=== PATIENT | male | born 1965 | race Caucasian/White ===

== ENCOUNTER → 2016-11-14 | Outpatient (CLI) | payer BC ==
[2016-03-13 11:07] VITALS: BP 184/92
[~2016-11-14] MED LIST: NS 100 ML IV 100 ML IV ONE
[2016-11-14 08:42] LABS: CREATININE 1.18 mg/dL (0.70-1.30)
--- NOTE | 2016-11-14 10:06 | CT ---
CT angiogram chest with contrast Indication: Dyspnea and cough. Past history of PE. Comparison: July 14, 2013 CT. Technique: Helical images through the chest after IV contrast per protocol. Coronal and sagittal refo rmats provided. MIP images performed. Findings: Limited images through the upper abdomen shows no acute abnormality. Review of bone windows shows spine degenerative change. Chest: Aortic arch and branch vessels patent. Pulmonary artery bolus timing is adequate, without larg e central or segmental pulmonary thromboembolic filling defect identified. There is no pneumothorax, effusion or consolidation. No mediastinal abnormality seen. Heart size is normal. Mild peribronchial thickening with patchy tree-in-bud opacities in the right lower lung noted. Impression: 1. Early right lower lobe pneumonia possible. 2. No pulmonary thromboembolus. 3. No other acute abnormality. Reported By:
== END ==
LOC: RAD 08:15
PROVIDERS: ATTEND Internal Medicine
DX: R06.02 Shortness of breath (principal); R05 Cough; I26.99 Other pulmonary embolism without acute cor pulmonale
CPT/HCPCS: 36415; 71275; 82565; 84520; A4222

== ENCOUNTER 2019-11-29 09:57 | Observation (INO) ==
[2019-11-29] MEDS ORDERED: NS 500 ML IV 1,000 ML IV ONE (10:38)
[2019-11-29] MEDS ORDERED: NORMODYNE INJ 100 MG VIAL IVP ONE (10:40)
[2019-11-29] MEDS ORDERED: ZOFRAN INJ 4 MG VIAL IVP ONE ×2 (10:40→11:33)
[2019-11-29] MEDS ORDERED: ZOFRAN INJ 4 MG VIAL ONE ×2 (10:50→19:15)
[2019-11-29] MEDS ORDERED: NORMODYNE INJ 100 MG VIAL ONE (10:51)
[2019-11-29] MEDS ORDERED: NS 1000 ML 1,000 ML ONE (10:51)
[2019-11-29] MEDS ORDERED: VERSED ONE (10:55)
[2019-11-29] MEDS ORDERED: DIPRIVAN VIAL ONE (10:55)
--- NOTE | 2019-11-29 10:59 | DR.GENAD ---
HPI Time Seen Time Seen by Provider: 11/29/19 10:01 PCP Primary Care Physician: DR BENEDICT VILLALOBOS Complaint/Symptoms Chief Complaint Doctors Comments: MRI done 11/26/2019 showed no CVA or optic nerve disorder. Chief Complaint:: SINCE FRIDAY PT HAS HAD CONSTANT SEVERE PAIN INTO RIGHT SIDE OF HEAD AND VISION LOSS INTO RIGHT EYE. PT ALSO C/O NAUSEA. Self Treatment fo Chief Complaint: TOOK HYDROCODONE AND PHENERGAN WITH NO RELIEF COVID-19 Coronavirus risk:travel/contact w/high risk person: No Has patient experienced Coronavirus symptoms: No Nurses notes reviewed Nurses Notes Review: Yes Source History Provided: Patient Mode of Arrival Mode of Arrival: Ambulatory Timing Onset of Chief Complaint: 11/24/19 Came on: Gradually Duration Duration: Constant How lon Duration: Days Location Location: right periorbital area Severity Severity: Moderate Modifying Factors Worsens:: movement and vision Associated Signs and Symptoms Associated Signs and Symptoms: dizziness vomiting PMH PMH Past Medical History: Yes Past Medical History: Coronary Artery Disease, Diabetes, Dyslipidemia and Hypertension Past Medical History Comment: DVT. AFIB, MULTIPLE PE, FACTOR 5 LIEDEN Past Surgical History: Yes Surgical History: Angioplasty/Stents, Cholecystectomy and Tonsillectomy Family History History of Family Medical Conditions: Yes Family Medical History: Diabetes Mellitus, Cancer, [place], Coronary Artery Disease and Hypertension Family Medical History Comment: CVA Social History Does patient currently use any type of tobacco product: No Have you used tobacco products in the last 12 months: No Type of Tobacco Use: None Does any household member use tobacco: No Alcohol Use: Rarely Do you use any recreational Drugs:: No Lives With: Family Lives Where: Home Travel Risk Coronavirus risk:travel/contact w/high risk person: No Has patient experienced Coronavirus symptoms: No Infectious screening In the last 2 months have you had wt loss of >10#?: NO Have you had fever, night sweats or hemotysis?: No Have you traveled outside the country in the last 6 months?: No Isolation: Standard ROS Review of Systems Constitutional: No Symptoms Reported Eyes: Blurred Vision and Photophobia ENTM: No Symptoms Reported Respiratoy: No Symptoms Reported Cardiovascular: No Symptoms Reported Gastrointestinal/Abdominal: Nausea and Vomiting Genitourinary: No Symptoms Reported Neurological: Headache and Dizziness Musculoskeletal: No Symptoms Reported Integumentary: No Symptoms Reported Hematologic/Lymphatic: No Symptoms Reported Endocrine: No Symptoms Reported Psychiatric: Depression All Other Systems: Reviewed and Negative PE Vital Signs Vitals: Temperature 98.1 F Pulse Rate 72 Respiratory Rate 22 Blood Pressure [Left Arm] 180/87 Blood Pressure [Right Arm] 184/92 Blood Pressure 213/91 O2 Sat by Pulse Oximetry 99 Opioid Opioid Risk Tool Age (Jg box if 16-45): No History of Preadolescent Sexual Abuse: No Total: 0 Total Score Risk Category: Low Risk Copyright: Kaiden PITTS predicting aberrant behaviors
--- NOTE | 2019-11-29 11:24 | DR.GENAD ---
HPI Time Seen Time Seen by Provider: 11/29/19 10:01 PCP Primary Care Physician: DR BENEDICT VILLALOBOS Complaint/Symptoms Chief Complaint:: SINCE FRIDAY PT HAS HAD CONSTANT SEVERE PAIN INTO RIGHT SIDE OF HEAD AND VISION LOSS INTO RIGHT EYE. PT ALSO C/O NAUSEA. Self Treatment fo Chief Complaint: TOOK HYDROCODONE AND PHENERGAN WITH NO RELIEF COVID-19 Coronavirus risk:travel/contact w/high risk person: No Has patient experienced Coronavirus symptoms: No Nurses notes reviewed Nurses Notes Review: Yes Source History Provided: Patient Mode of Arrival Mode of Arrival: Ambulatory Timing Onset of Chief Complaint: 11/24/19 Came on: Gradually Duration Duration: Constant How lon Duration: Days Location Location: right periorbital area Severity Severity: Moderate Modifying Factors Worsens:: movement and vision Associated Signs and Symptoms Associated Signs and Symptoms: dizziness vomiting PMH PMH Past Medical History: Yes Past Medical History: Coronary Artery Disease, Diabetes, Dyslipidemia and Hypertension Past Medical History Comment: DVT. AFIB, MULTIPLE PE, FACTOR 5 LIEDEN Past Surgical History: Yes Surgical History: Angioplasty/Stents, Cholecystectomy and Tonsillectomy Family History History of Family Medical Conditions: Yes Family Medical History: Diabetes Mellitus, Cancer, [place], Coronary Artery Disease and Hypertension Family Medical History Comment: CVA Social History Does patient currently use any type of tobacco product: No Have you used tobacco products in the last 12 months: No Type of Tobacco Use: None Does any household member use tobacco: No Alcohol Use: Rarely Do you use any recreational Drugs:: No Lives With: Family Lives Where: Home Travel Risk Coronavirus risk:travel/contact w/high risk person: No Has patient experienced Coronavirus symptoms: No Infectious screening In the last 2 months have you had wt loss of >10#?: NO Have you had fever, night sweats or hemotysis?: No Have you traveled outside the country in the last 6 months?: No Isolation: Standard PE Vital Signs Vitals: Temperature 98.1 F Pulse Rate 66 Respiratory Rate 25 Blood Pressure [Left Arm] 180/87 Blood Pressure [Right Arm] 184/92 Blood Pressure 164/70 O2 Sat by Pulse Oximetry 99 COURSE Consultation Called: 11:23 Call Returned: 11:23 Consultation Comments: 1124: case discussed with Dr. Cunha admit to get Echo cardiogram and control vomiting. ROR Labs Reviewed Result Diagrams: 11/29/19 11:05 11/29/19 11:05 Laboratory: WBC 10.9 X10^3/uL (3.6-10.0) H 11/29/19 11:05 RBC 5.02 X10^6/uL (4.7-6.0) 11/29/19 11:05 Hgb 14.0 g/dL (13.5-18.0) 11/29/19 11:05 Hct 40.8 % (42.0-54.0) L 11/29/19 11:05 MCV 81.4 fL (80.0-100.0) 11/29/19 11:05 MCH 28.0 pg (27.0-34.0) 11/29/19 11:05 MCHC 34.4 g/dL (33.0-35.0) 11/29/19 11:05 RDW 17.1 % (11.6-16.5) H 11/29/19 11:05 Plt Count 279 X10^3/uL (150.0-450.0) 11/29/19 11:05 MPV 7.2 fL (7.4-11.0) L 11/29/19 11:05 Neut % (Auto) 74.5 % (42.0-75.0) 11/29/19 11:05 Lymph % (Auto) 13.5 % (21.0-51.0) L 11/29/19 11:05 Tompkins % (Auto) 8.3 % (0.0-13.0) 11/29/19 11:05 Eos % (Auto) 3.2 % (0.9-2.9) H 11/29/19 11:05 Baso % (Auto) 0.5 % (0.2-1.0) 11/29/19 11:05 Neut # (Auto) 8.1 x10^3/uL (2.2-4.8) H 11/29/19 11:05 Lymph # (Auto) 1.5 X10^3/uL (1.3-2.9) 11/29/19 11:05 Tompkins # (Auto) 0.9 x10^3/uL (0.3-0.8) H 11/29/19 11:05 Eos # (Auto) 0.4 x10^3/uL (0.0-0.2) H 11/29/19 11:05 Baso # (Auto) 0.1 X10^3/uL (0.0-0.1) 11/29/19 11:05 Absolute Nucleated RBC 0.1 /100WBC 11/29/19 11:05 Sodium 135 mmol/L (136-145) L 11/29/19 11:05 Corrected Sodium 138 mmol/L (136-145) 11/29/19 11:05 Potassium 4.4 mmol/L (3.5-5.1) 11/29/19 11:05 Chloride 97 mmol/L (98-107) L 11/29/19 11:05 Carbon Dioxide 29.0 mmol/L (21-32) 11/29/19 11:05 BUN 20 mg/dL (7-18) H 11/29/19 11:05 Creatinine 1.48 mg/dL (0.70-1.30) H 11/29/19 11:05 Est GFR (MDRD) Af Amer > 60 (>60) 11/29/19 11:05 Est GFR (MDRD) Non-Af 52 (>60) L 11/29/19 11:05 Glucose 223 mg/dL (65-99) H 11/29/19 11:05 Calcium 10.0 mg/dL (8.5-10.1) 11/29/19 11:05 Corrected Calcium TNP 11/29/19 11:05 Total Bilirubin 0.50 mg/dL (0.2-1.0) 11/29/19 11:05 AST 23 Units/L (15-37) 11/29/19 11:05 ALT 27 Units/L (12-78) 11/29/19 11:05 Alkaline Phosphatase 47 Units/L (46-116) 11/29/19 11:05 Creatine Kinase 58 Units/L (39-308) 11/29/19 11:05 CK-MB (CK-2) 1.6 ng/mL (0-4.0) 11/29/19 11:05 CK/CKMB % Calc 2.8 % (<4) 11/29/19 11:05 Troponin I < 0.02 ng/mL (0-1.5) 11/29/19 11:05 Total Protein 8.4 g/dL (6.4-8.2) H 11/29/19 11:05 Albumin 3.7 g/dL (3.4-5.0) 11/29/19 11:05 Globulin 4.7 g/dL (2.5-4.5) H 11/29/19 11:05 Albumin/Globulin Ratio 0.8 Ratio (1.1-2.1) L 11/29/19 11:05 XRAY XRAY Interpreted by: Radiologist X-ray Results: carotid U/S: no significant obstruction/narrowing Opioid Opioid Risk Tool Age (Jg box if 16-45): No History of Preadolescent Sexual Abuse: No Total: 0 Total Score Risk Category: Low Risk Copyright: Kaiden PITTS predicting aberrant behaviors Diagnosis Discharge Problem: Visual field defect Intractable vomiting Qualifiers: Vomiting type: unspecified Nausea presence: with nausea Qualified Code(s): R11.2 - Nausea with vomiting, unspecified Instructions Forms: Precautions for COVID19 Patient Portal Social Distancing
[2019-11-29 11:42] LABS: BASOPHILS # (AUTO) 0.1 X10^3/uL (0.0-0.1); BASOPHILS % (AUTO) 0.5 % (0.2-1.0); EOSINOPHILS # (AUTO) 0.4 x10^3/uL (0.0-0.2); EOSINOPHILS % (AUTO) 3.2 % (0.9-2.9); HEMATOCRIT 40.8 % (42.0-54.0); LYMPHOCYTES # (AUTO) 1.5 X10^3/uL (1.3-2.9); LYMPHOCYTES % (AUTO) 13.5 % (21.0-51.0); MEAN CORPUSCULAR HGB CONC 34.4 g/dL (33.0-35.0); MEAN CORPUSCULAR VOLUME 81.4 fL (80.0-100.0); MEAN PLATELET VOLUME 7.2 fL (7.4-11.0); MONOCYTES # (AUTO) 0.9 x10^3/uL (0.3-0.8); MONOCYTES % (AUTO) 8.3 % (0.0-13.0); NEUTROPHILS # (AUTO) 8.1 x10^3/uL (2.2-4.8); NEUTROPHILS % (AUTO) 74.5 % (42.0-75.0); PLATELET COUNT 279 X10^3/uL (150.0-450.0); RED BLOOD COUNT 5.02 X10^6/uL (4.7-6.0); RED CELL DISTRIBUTION WIDTH 17.1 % (11.6-16.5); WHITE BLOOD COUNT 10.9 X10^3/uL (3.6-10.0)
[2019-11-29 11:45] LABS: BLOOD UREA NITROGEN 20 mg/dL (7-18); CHLORIDE 97 mmol/L (98-107); COR NA(FOR HYPERGLY) 138 mmol/L (136-145); CREATININE 1.48 mg/dL (0.70-1.30); SODIUM 135 mmol/L (136-145); TROPONIN I < 0.02 ng/mL (0-1.5); eGFR NON BLACK RACES 52 (>60)
--- NOTE | 2019-11-29 11:46 | VAS ---
HISTORYVISION DIPOLOPASTUDYCAROTID USCOMPARISONNone.TECHNIQUEMultiple guidry scale and color flow Doppler images of the right and left carotid arterial system were obtained. The vertebral arterial system was evaluated as well.FINDINGSNormal color flow Doppler is seen throughout the right and left carotid arterial system. No hemodynamically significant stenosis is seen based on velocity criteria. The right and left vertebral arteries demonstrate antegrade flow.IMPRESSIONNo hemodynamically significant stenosisElectronically signed by: Jesse Leavitt (Nov 29, 2019 11:46:01)
[2019-11-29 11:49] LABS: ALANINE AMINOTRANSFERASE 27 Units/L (12-78); ALBUMIN 3.7 g/dL (3.4-5.0); ALKALINE PHOSPHATASE 47 Units/L (46-116); ASPARTATE AMINO TRANSFERASE 23 Units/L (15-37); CKMB % 2.8 % (<4); CREATINE KINASE 58 Units/L (39-308); CREATINE KINASE MB 1.6 ng/mL (0-4.0); TOTAL PROTEIN 8.4 g/dL (6.4-8.2)
[2019-11-29] MEDS: NS 1000 ML 1,000 ML IV SCH (14:45)
[2019-11-29 15:06] VITALS: BMI 37.5
[2019-11-29] MEDS ORDERED: TYLENOL 325 MG TAB PO PRN (18:24)
[2019-11-29] MEDS: ZOFRAN INJ 4 MG VIAL IVP PRN (19:20)
[2019-11-30] MEDS: NS 1000 ML 1,000 ML IV SCH ×2 (03:04→17:45)
[2019-11-30] MEDS ORDERED: SEMAGLUTIDE 1 MG SUBCUT SCH (10:00)
[2019-11-30] MEDS: GLUCOPHAGE XR 24-HR PO SCH ×2 (11:00→20:47)
[2019-11-30] MEDS: LOPRESSOR TAB 50 MG PO SCH ×2 (11:30→20:47)
[2019-11-30] MEDS: PriLOSEC PO SCH (11:30)
[2019-11-30] MEDS: INVOKANA PO SCH (11:30)
[2019-11-30] MEDS: LOVAZA PO SCH (11:30)
[2019-11-30] MEDS: ACTOS PO SCH (11:30)
[2019-11-30] MEDS: NEURONTIN CAP 100 MG PO SCH ×2 (11:30→20:47)
[2019-11-30] MEDS: BENICAR TAB 40 MG PO SCH (11:30)
[2019-11-30] MEDS: BETAPACE AF PO SCH ×2 (11:30→20:46)
[2019-11-30] MEDS: CRESTOR TAB 10 MG PO SCH (20:47)
[2019-11-30] MEDS: ZOFRAN INJ 4 MG VIAL IVP PRN (22:26)
[2019-11-30] MEDS: DEMEROL INJ IVP PRN (22:28)
[2019-12-01] MEDS: NS 1000 ML 1,000 ML IV SCH ×4 (03:00→16:14)
[2019-12-01 06:48] LABS: BASOPHILS # (AUTO) 0.1 X10^3/uL (0.0-0.1); BASOPHILS % (AUTO) 0.7 % (0.2-1.0); EOSINOPHILS # (AUTO) 0.3 x10^3/uL (0.0-0.2); EOSINOPHILS % (AUTO) 2.7 % (0.9-2.9); HEMATOCRIT 35.5 % (42.0-54.0); HEMOGLOBIN 12.4 g/dL (13.5-18.0); LYMPHOCYTES # (AUTO) 1.7 X10^3/uL (1.3-2.9); LYMPHOCYTES % (AUTO) 16.6 % (21.0-51.0); MEAN CORPUSCULAR HGB CONC 34.8 g/dL (33.0-35.0); MEAN CORPUSCULAR VOLUME 80.7 fL (80.0-100.0); MEAN PLATELET VOLUME 7.2 fL (7.4-11.0); MONOCYTES # (AUTO) 0.9 x10^3/uL (0.3-0.8); MONOCYTES % (AUTO) 8.6 % (0.0-13.0); NEUTROPHILS # (AUTO) 7.1 x10^3/uL (2.2-4.8); NEUTROPHILS % (AUTO) 71.4 % (42.0-75.0); PLATELET COUNT 239 X10^3/uL (150.0-450.0)
[2019-12-01 06:55] LABS: ALANINE AMINOTRANSFERASE 23 Units/L (12-78); ALBUMIN 3.3 g/dL (3.4-5.0); ALKALINE PHOSPHATASE 41 Units/L (46-116); ASPARTATE AMINO TRANSFERASE 17 Units/L (15-37); BLOOD UREA NITROGEN 16 mg/dL (7-18); CALCIUM 8.8 mg/dL (8.5-10.1); CARBON DIOXIDE 26.5 mmol/L (21-32); CHLORIDE 104 mmol/L (98-107); COR CA(FOR HYPOALB) 9.4 mg/dL (8.5-10.1); CREATININE 1.13 mg/dL (0.70-1.30); SODIUM 139 mmol/L (136-145); TOTAL PROTEIN 7.6 g/dL (6.4-8.2); eGFR NON BLACK RACES > 60 (>60)
[2019-12-01] MEDS: LOPRESSOR TAB 50 MG PO SCH ×2 (09:20→20:42)
[2019-12-01] MEDS: BENICAR TAB 40 MG PO SCH (09:21)
[2019-12-01] MEDS: BETAPACE AF PO SCH ×2 (09:22→20:41)
[2019-12-01] MEDS: DEMEROL INJ IVP PRN ×2 (10:15→20:11)
[2019-12-01] MEDS: ZOFRAN INJ 4 MG VIAL IVP PRN ×2 (10:15→20:12)
[2019-12-01] MEDS ORDERED: ANCEF VIAL 1 GRAM ONE (10:43)
[2019-12-01] MEDS ORDERED: NS 100 ML IV 100 ML IV ONE (10:43)
[2019-12-01] MEDS ORDERED: FENTANYL INJ 100 mcg ONE (10:44)
[2019-12-01] MEDS ORDERED: XYLOCAINE 1% and EPINEPHRINE 1:100,000 ONE (11:06)
[2019-12-01] MEDS ORDERED: BACTROBAN TOPICAL OINT ONE (11:53)
[2019-12-01] MEDS ORDERED: BETADINE SOLN ONE (11:54)
[2019-12-01] MEDS ORDERED: PERCOCET TAB 5/325 MG PO PRN (12:11)
[2019-12-01] MEDS: ACTOS PO SCH (14:16)
[2019-12-01] MEDS: LOVAZA PO SCH (14:17)
[2019-12-01] MEDS: NEURONTIN CAP 100 MG PO SCH ×2 (14:17→20:42)
[2019-12-01] MEDS: GLUCOPHAGE XR 24-HR PO SCH ×2 (14:17→20:41)
[2019-12-01] MEDS: INVOKANA PO SCH (14:17)
[2019-12-01] MEDS: PriLOSEC PO SCH (14:18)
[2019-12-01] MEDS: PREDNISONE TAB 20 MG PO SCH (14:18)
[2019-12-01] MEDS ORDERED: PHENERGAN INJ 25 MG IM ONE ×2 (16:16→16:28)
[2019-12-01] MEDS ORDERED: NORVASC TAB 10 MG ONE (16:28)
[2019-12-01] MEDS: NORVASC TAB 10 MG PO SCH (16:45)
[2019-12-01] MEDS: CRESTOR TAB 10 MG PO SCH (20:40)
[2019-12-02] MEDS: NS 1000 ML 1,000 ML IV SCH (04:00)
[2019-12-02 06:25] LABS: BASOPHILS % (AUTO) 0.3 % (0.2-1.0); EOSINOPHILS # (AUTO) 0.1 x10^3/uL (0.0-0.2); EOSINOPHILS % (AUTO) 0.5 % (0.9-2.9); HEMATOCRIT 35.9 % (42.0-54.0); HEMOGLOBIN 12.3 g/dL (13.5-18.0); LYMPHOCYTES # (AUTO) 1.7 X10^3/uL (1.3-2.9); LYMPHOCYTES % (AUTO) 16.4 % (21.0-51.0); MEAN CORPUSCULAR HEMOGLOBIN 27.9 pg (27.0-34.0); MEAN CORPUSCULAR HGB CONC 34.4 g/dL (33.0-35.0); MEAN CORPUSCULAR VOLUME 81.1 fL (80.0-100.0); MEAN PLATELET VOLUME 7.3 fL (7.4-11.0); MONOCYTES # (AUTO) 0.7 x10^3/uL (0.3-0.8); MONOCYTES % (AUTO) 7.2 % (0.0-13.0); NEUTROPHILS # (AUTO) 7.8 x10^3/uL (2.2-4.8); NEUTROPHILS % (AUTO) 75.6 % (42.0-75.0); PLATELET COUNT 234 X10^3/uL (150.0-450.0); RED BLOOD COUNT 4.42 X10^6/uL (4.7-6.0); RED CELL DISTRIBUTION WIDTH 16.5 % (11.6-16.5); WHITE BLOOD COUNT 10.3 X10^3/uL (3.6-10.0)
[2019-12-02 06:40] LABS: ALANINE AMINOTRANSFERASE 19 Units/L (12-78); ALBUMIN 3.1 g/dL (3.4-5.0); ALKALINE PHOSPHATASE 39 Units/L (46-116); ASPARTATE AMINO TRANSFERASE 14 Units/L (15-37); BLOOD UREA NITROGEN 17 mg/dL (7-18); CALCIUM 8.6 mg/dL (8.5-10.1); CARBON DIOXIDE 23.6 mmol/L (21-32); CHLORIDE 105 mmol/L (98-107); COR CA(FOR HYPOALB) 9.3 mg/dL (8.5-10.1); CREATININE 1.08 mg/dL (0.70-1.30); SODIUM 140 mmol/L (136-145); TOTAL PROTEIN 7.3 g/dL (6.4-8.2); eGFR NON BLACK RACES > 60 (>60)
[2019-12-02] MEDS ORDERED: PERCOCET TAB 5/325 MG PO PRN (09:14)
[2019-12-02] MEDS: ACTOS PO SCH (09:16)
[2019-12-02] MEDS: BENICAR TAB 40 MG PO SCH (09:16)
[2019-12-02] MEDS: GLUCOPHAGE XR 24-HR PO SCH (09:17)
[2019-12-02] MEDS: BETAPACE AF PO SCH (09:17)
[2019-12-02] MEDS: LOVAZA PO SCH (09:17)
[2019-12-02] MEDS: LOPRESSOR TAB 50 MG PO SCH (09:17)
[2019-12-02] MEDS: INVOKANA PO SCH (09:17)
[2019-12-02] MEDS: PREDNISONE TAB 20 MG PO SCH (09:18)
[2019-12-02] MEDS: NORVASC TAB 10 MG PO SCH (09:18)
[2019-12-02] MEDS: NEURONTIN CAP 100 MG PO SCH (09:18)
[2019-12-02] MEDS: PriLOSEC PO SCH (09:18)
[2019-12-02] MEDS ORDERED: APRESOLINE TAB 25 MG PO SCH (10:00)
[2019-12-02 12:08] VITALS: BP 143/69
== END 2019-12-02 13:10 | disposition home or self-care (01) ==
LOC: ER 09:57 → MED/SURG 09:57
PROVIDERS: ADMIT Obstetrics & Gynecology Obstetrics; ATTEND Obstetrics & Gynecology Obstetrics
DX: M31.6 Other giant cell arteritis; E11.65 Type 2 diabetes mellitus with hyperglycemia; E78.2 Mixed hyperlipidemia; I25.10 Atherosclerotic heart disease of native coronary artery without angina pectoris; I48.91 Unspecified atrial fibrillation; R51.9 Headache, unspecified; R11.2 Nausea with vomiting, unspecified; H53.2 Diplopia; G45.3 Amaurosis fugax